=== PATIENT | female | born 1965 | race Caucasian/White ===

== ENCOUNTER 2018-03-29 06:20 | Observation (INO) | payer OTHER ==
--- NOTE | 2018-03-27 16:50 | Diagnostic Imaging Report ---
EXAM: CHEST 2 VIEWS, PA and lateral DATE: 03/27/2018 4:17 PM Time stamp on exam: 4:15 PM INDICATION: Preoperative COMPARISON: None FINDINGS: LINES/TUBES: None LUNGS: No consolidations or edema. PLEURA: No effusions or pneumothorax. HEART AND MEDIASTINUM: Normal size and contour. BONES AND SOFT TISSUES: No acute findings. Minimal degenerative changes of the lower spine. IMPRESSION: No acute thoracic abnormality. Signed by: Dr. Tristian Hauser DO on 03/27/2018 4:47 PM
[2018-03-27 17:03] LABS: BASOPHILS % 0.5 % (0.0-1.0); EOSINOPHILS # (AUTO) 0.1 (0.0-0.4); EOSINOPHILS % 2.2 % (0.0-6.0); HEMATOCRIT 37.2 % (34.2-44.1); HEMOGLOBIN 12.1 g/dL (12.0-16.0); LYMPHOCYTES % 17.6 % (18.0-39.1); MEAN CORPUSCULAR HEMOGLOBIN 31.2 pg (28-32); MEAN CORPUSCULAR HGB CONC 32.5 g/dL (31-35); MEAN CORPUSCULAR VOLUME 95.9 fL (81-99); MONOCYTES # (AUTO) 0.6 (0.2-0.8); MONOCYTES % 9.7 % (4.4-11.3); NEUTROPHILS # (AUTO) 4.1 (2.1-6.9); NEUTROPHILS % 69.8 % (38.7-80.0); PLATELET COUNT 213 x10e3/uL (140-360); RED BLOOD COUNT 3.88 x10e6/uL (3.6-5.1); RED CELL DISTRIBUTION WIDTH 13.2 % (11.7-14.4)
[2018-03-27 17:15] LABS: INR 0.97; PARTIAL THROMBOPLASTIN TIME 24.7 seconds (23.8-35.5); PROTHROMBIN TIME 13.8 seconds (11.9-14.5)
[2018-03-27 17:20] LABS: ANION GAP 13.3 mmol/L (8-16); BLOOD UREA NITROGEN 14 mg/dL (7-26); BUN/CREATININE RATIO 17 (6-25); CALCIUM 9.3 mg/dL (8.4-10.2); CARBON DIOXIDE 28 mmol/L (22-29); CHLORIDE 104 mmol/L (98-107); CREATININE, SERUM 0.81 mg/dL (0.57-1.11); EST GLOMERULAR FILTRATION RATE > 60 ML/MIN (60-); GLUCOSE 95 mg/dL (74-118); POTASSIUM 4.3 mmol/L (3.5-5.1); SODIUM 141 mmol/L (136-145)
[~2018-03-29] VITALS: Ht 157.5 cm; Wt 66.4 kg
[~2018-03-29 06:20] MED LIST: METHOCARBAMOL750 MG PO; ULTRAM50 MG PO
[2018-03-29] MEDS ORDERED: BUPIVACAINE 0.5%/EPI 30 ML SDV INJ ONE ×2 (06:36→09:47)
[2018-03-29] MEDS ORDERED: BACITRACIN 50,000 UNIT VIAL ONE ×2 (06:36→09:47)
[2018-03-29] MEDS ORDERED: THROMBIN FOR SOLN 5,000 UNIT VIAL ONE ×2 (06:36→09:47)
[2018-03-29] MEDS ORDERED: GELATIN SPONGE 12-7MM ONE ×2 (06:36→09:47)
[2018-03-29] MEDS ORDERED: LIDOCAINE HCL (LTA) 4 ML SOLN ONE (07:04)
[2018-03-29] MEDS ORDERED: CEFAZOLIN SOD 1 GM VIAL ONE (07:05)
[2018-03-29] MEDS ORDERED: METHOCARBAMOL 750 MG TAB PO SCH (10:00)
[2018-03-29] MEDS ORDERED: CEPACOL SORE THROAT LOZENGES PO PRN (10:00)
[2018-03-29] MEDS ORDERED: PROMETHAZINE HCL (IM) 25 MG/ML VIAL IM PRN (10:00)
[2018-03-29] MEDS ORDERED: CARISOPRODOL 350 MG TAB PO PRN (10:00)
[2018-03-29] MEDS ORDERED: MAGNESIUM/ALUMINUM/SIMETHICONE 30 ML UDC PO PRN (10:00)
[2018-03-29] MEDS ORDERED: MORPHINE SULFATE 5 MG/ML VIAL IM PRN (10:00)
[2018-03-29] MEDS ORDERED: ACETAMINOPHEN 325 MG TAB PO PRN (10:00)
[2018-03-29] MEDS ORDERED: TRAMADOL HCL 50 MG TAB PO PRN (10:00)
[2018-03-29] MEDS ORDERED: METHOCARBAMOL 500 MG TAB PO PRN (10:15)
[2018-03-29 11:35] VITALS: BP 127/58
[2018-03-29] MEDS: HYDROMORPHONE 2MG/ML 2 MG/ML ML IV PRN ×3 (13:14→22:54)
[2018-03-29] MEDS: ONDANSETRON HCL INJ 2 MG/ML VIAL IV PRN ×2 (13:14→18:00)
[2018-03-29 13:30] VITALS: BP 127/58
[2018-03-29] MEDS ORDERED: CEFAZOLIN SOD 1 GM/D5W 50ML 50 ML IV SCH (14:00)
[2018-03-29] MEDS: LACTATED RINGER'S 1,000 ML IV SCH ×2 (15:11→18:11)
[2018-03-29] MEDS: OXYCODONE/ACETAMINOPHEN 5-325 1 EACH TABLET PO PRN (15:12)
[2018-03-29 15:17] VITALS: BP 127/58
[2018-03-29] MEDS: CEFAZOLIN SOD 1 GM VIAL IV SCH (18:01)
--- NOTE | 2018-03-29 18:21 | Operative Report ---
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 PROCEDURES: Left L3-4 laminotomy, medial facetectomy and microsurgical lateral recess decompression, [address]49[address]. ANESTHESIA: General. INDICATIONS: The patient is a 52-year-old woman, who presents with L3-4 bilateral facet arthropathy and asymmetric lateral recess stenosis, worse on the left side, symptomatic with left L4 chronic radiculopathy. She was taken to the operating room for microsurgical decompression of the left L4 nerve root. DESCRIPTION OF PROCEDURE: After the induction of general anesthesia, the patient was placed on the operating table in the prone position over a Marcial frame. The lumbar region was prepped and draped in a sterile fashion. A preoperative x-ray was obtained. A small midline incision was created. The lumbar fascia was opened to the left of the midline, and subperiosteal dissection was carried out to expose the left-sided L3 and L4 laminae and the medial aspect of the hypertrophic facet joint. A 2nd x-ray confirmed correct localization. The operating microscope was brought in. A high-speed drill equipped with a jong bur was used to drill the inferior aspect of the lamina of L3, the superior rim of the lamina of L4, and the medial aspect of the L3-4 hypertrophic facet joint. The markedly hypertrophic ligamentum flavum was then carefully resected. The dura and the L4 traversing nerve root were fully exposed and decompressed. Meticulous hemostasis was secured. The underlying disk was examined and found to be intact. The wound was copiously irrigated with bacitracin solution. Meticulous hemostasis was again secured. The wound was closed in multiple layers with #0 and 2-0 Vicryl sutures. The skin was closed with 3-0 Monocryl sutures in a subcuticular fashion. Steri-Strips and a dressing were applied. The patient was awakened, extubated, and taken to the postanesthesia care unit in stable condition. No intraoperative complications were encountered. Estimated blood loss was 10 mL. Job#: [id number]
[2018-03-29] MEDS ORDERED: FENTANYL CITRATE/PF 100MCG/2 ML INJ ONE (18:58)
[2018-03-29] MEDS ORDERED: MIDAZOLAM HCL 2 MG/2 ML VIAL ONE (18:58)
[2018-03-29] MEDS ORDERED: ACETAMINOPHEN 1000 MG/100 ML IV ONE (19:34)
[2018-03-29] MEDS ORDERED: ONDANSETRON HCL INJ 2 MG/ML VIAL ONE (19:34)
[2018-03-29] MEDS ORDERED: DEXAMETHASONE SOD PHOS INJ 4 MG/ML VIAL ONE (19:34)
[2018-03-29] MEDS ORDERED: SEVOFLURANE INHAL SOLN 250 ML PEN BTL ONE (19:34)
[2018-03-29] MEDS ORDERED: PROPOFOL IV EMULSION 10 MG/ML 20 ML VIAL ONE (19:34)
[2018-03-29] MEDS ORDERED: NEOSTIGMINE 5 MG/5ML SYR ONE (19:34)
[2018-03-29] MEDS ORDERED: LIDOCAINE HCL 2% LOCAL INJ 5 ML SDV VIAL INJ ONE (19:34)
[2018-03-29] MEDS ORDERED: ROCURONIUM BROMIDE 10 MG/ML 5ML VIAL ONE (19:34)
[2018-03-29] MEDS ORDERED: GLYCOPYRROLATE INJ 1MG/ 5 ML SYR ONE (19:34)
[2018-03-29 20:00] VITALS: BP 106/58
[2018-03-29] MEDS ORDERED: ZOLPIDEM TARTRATE 5 MG TAB PO PRN (21:00)
[2018-03-30] MEDS: CEFAZOLIN SOD 1 GM VIAL IV SCH ×2 (00:20→08:55)
[2018-03-30 00:39] VITALS: BP 90/54
[2018-03-30 00:40] VITALS: BP 90/54
[2018-03-30 01:00] VITALS: BP 90/54
[2018-03-30] MEDS: LACTATED RINGER'S 1,000 ML IV SCH (01:31)
[2018-03-30 04:30] VITALS: BP 100/55
[2018-03-30 05:14] VITALS: BP 100/55
[2018-03-30] MEDS: OXYCODONE/ACETAMINOPHEN 5-325 1 EACH TABLET PO PRN (05:25)
[2018-03-30] MEDS ORDERED: NORCO 7.5-3251 EACH PO (08:13)
[2018-03-30 08:20] VITALS: BP 104/59
--- OUTSIDE RECORDS SUMMARY | 2018-04-10 10:26 | XMS REPORT ---
Author [facility] Address Unknown Phone Unavailable Care Team Providers Care Education Professor Name Role Phone SARA OG Unavailable Unavailable Problems This patient has no known problems. Allergies, Adverse Reactions, Alerts This patient has no known allergies or adverse reactions. Medications This patient has no known medications. Results Test Description Test Time Test Comments Text Results Atomic Results Result Comments CHEST 2 VIEWS 2018-03-27 16:45:00 [place] [address] Patient Name: HEIDY HAGAN MR #: [id number] : 1965 Age/Sex: 52/F Req #: [id number] Adm Physician: Ordered by: SARA OG MD Report #: [id number] Location: OR Room/Bed: Procedure: [id number] DX/CHEST 2 VIEWS Exam Date: 03/27/18 Exam Time: 1638 REPORT STATUS: Signed EXAM: CHEST 2 VIEWS, PA and lateral DATE: 03/27/2018 4:17 PM Time stamp on exam: 4:15 PM INDICATION: Preoperative COMPARISON: None FINDINGS: LINES/TUBES: None LUNGS: No consolidations or edema. PLEURA: No effusions or pneumothorax. HEART AND MEDIASTINUM: Normal size and contour. BONES AND SOFT TISSUES: No acute findings. Minimal degenerative changes of the lower spine. IMPRESSION: No acute thoracic abnormality. Signed by: Dr. Luis Hodgson DO on 03/27/2018 4:47 PM Dictated By: LUIS HODGSON DO 164 Transcribed By: JESSE on 03/27/181646 COPY TO: SARA OG MD
== END 2018-03-30 10:04 | disposition home or self-care (01) ==
LOC: OR 06:20 → PACU V 09:53 → IMCU 11:20
PROVIDERS: ADMIT Neurological Surgery; ATTEND Neurological Surgery
DX: M48.062 Spinal stenosis, lumbar region with neurogenic claudication (principal)
CPT/HCPCS: 36415 ×2; 63047; 71046; 72020; 80048; 84702; 85025; 85610; 85730; 86850; 86900; 88304; 93005; G0378 ×2; J0690 ×2; J1100; J1170; J2001; J2250; J2405; J3490; J7120; 88311; J2270